=== PATIENT | female | born 1965 | race Caucasian/White ===

== ENCOUNTER 2016-02-27 17:41 | Emergency (ER) | payer OTHER ==
[~2016-02-27 17:41] MED LIST: KLON2TAB PO; PAXI30TA11 PO; ROBA750T4 PO; SUBO8MIS SL; XANA1TAB2 PO; diclofenac PO; suboxone
[2016-02-27] MEDS ORDERED: PHENobarbital 30 MG TAB As Ordered ONE (20:02)
--- NOTE | 2016-02-27 20:58 | EDDOCDS ---
Physician Documentation [facility] Name: Pippa Porras Age: 51 yrs Sex: Female : 1965 Arrival Date: 02/27/2016 Time: 17:41 Bed 31 Private MD: [facility] - Pediatrics Disposition: 02/27/16 20:46 Discharged to Home/Self Care. Impression: Anxiety disorder, unspecified, Sedative, hypnotic or anxiolytic dependence, uncomplicated. - Condition is Stable. - Prescriptions for Klonopin 1 mg Oral Tablet - take 1 tablet by ORAL route once daily As needed MDD: 2 tabs; 2 tablet. - Medication Reconciliation, Local Pharmacy Hours form. - Follow up: Private Physician; When: As previously arranged. - Problem is chronic. - Symptoms have improved. Historical: - Allergies: no known allergies; - Home Meds: 1. klonipin 2mg four times a day not her own meds (Last dose: 02/26/2016) 2. Xanax 1 mg Oral tab four times a day not her own meds (Last dose: 02/26/2016) - PMHx: Anxiety; Arthritis; Bone Spurs; DDD; Depression; Panic Disorder; - PSHx: Tubal ligation; - Social history: Smoking status: Patient uses tobacco products, current every day smoker. No barriers to communication noted, The patient speaks fluent Jordanian, Speaks appropriately for age. - Family history: Not pertinent. - : The pt / caregiver states he / she is not on anticoagulants. Home medication list is obtained from the patient. - Exposure Risk Screening:: None identified. 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 3 in. (160.02 cm) (R); Pain 8/10; 20:56 BP 133 / 70; Pulse 88; Resp 18; Pulse Ox 97% on R/A; slm 17:43 Body Mass Index 26.57 (68.04 kg, 160.02 cm) ct3 MDM: 19:44 Financial registration complete. zo 19:45 [facility] Payment Agreement was scanned into [employer] and attached to record. zo 19:59 PHENobarbital 90 mg PO once ordered. cs11 20:11 PSA Outpatient Referrals was scanned into [employer] and attached to record. cs Administered Medications: 20:08 Drug: PHENobarbital 90 mg Route: PO; slm 20:56 Follow up: Response: Anxiety is improved sl Signatures: Alis Wiggins, RN RN [facility] Gold Laura, PSA PSA cs Dia Estrada Jennifer, RN RN js13 Jersey You, DO SHANE cs11 Windy Reed LPN LPN [facility] The chart was reviewed and I authenticate all verbal orders and agree with the evaluation and treatment provided.Attachments: 19:45 [facility] Payment Agreement zo MTDD
--- NOTE | 2016-02-27 20:58 | EDDOCDS ---
Nurse's Notes [facility] Name: Pipap Porras Age: 51 yrs Sex: Female : 1965 Arrival Date: 02/27/2016 Time: 17:41 Bed 31 Private MD: [facility] - Pediatrics Diagnosis: Anxiety disorder, unspecified;Sedative, hypnotic or anxiolytic dependence, uncomplicated Presentation: 02/26 17:54 Presenting complaint: Patient states: needs something for anxiety. is used to taking srm klonipin and xanax. has appt in PMD on the . denies SI or HI. Presenting complaint: Patient states: states she just got out of long-term yesterday. Mental Health Triage Level: Level 1- Pt displays no suicidal or homicidal ideations and does not appear to be a danger to self or others. Adult Sepsis Screening: The patient does not have new or worsening altered mentation. Patient's respiratory rate is less than 22. Systolic blood pressure is greater than 100. Patient has a qSOFA score of 0- Negative Sepsis Screen. Suicide/Homicide risk assessment- Patient denies SI and HI but presents with another emotional, behavioral or other mental health complaint. The patient reports that he/she has not been admitted to an inpatient mental health facility in the last 30 days. The patient reports that he/she has a recent or current history of substance abuse. The patient reports that he/she has no prior history of suicide attempt and/or organized plan. The patient reports that he/she has experienced a significant life altering event in the last 30 days. Status: Patient is not a social service technician or dependent. Transition of care: patient was not received from another setting of care. 17:54 Acuity: DECLAN Level 4 srm 17:54 Method Of Arrival: Walkin/Carried/Asstd srm Triage Assessment: 17:57 General: Appears in no apparent distress, Behavior is appropriate for age, cooperative. srm Pain: Location: back pain- chronic Pain currently is 8 out of 10 on a pain scale. HIV screening NA for this visit Offered previously. 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 klonipin 2mg four times a day not her own meds (Last dose: 02/26/2016) 2. Xanax 1 mg Oral tab four times a day not her own meds (Last dose: 02/26/2016) - PMHx: Anxiety; Arthritis; Bone Spurs; DDD; Depression; Panic Disorder; - PSHx: Tubal ligation; - Social history: Smoking status: Patient uses tobacco products, current every day smoker. No barriers to communication noted, The patient speaks fluent Jordanian, Speaks appropriately for age. - Family history: Not pertinent. - : The pt / caregiver states he / she is not on anticoagulants. Home medication list is obtained from the patient. - Exposure Risk Screening:: None identified. Screenin:26 Screening information is obtained from the patient. Fall risk: No risks identified. js13 Assistance ADL's: requires no assistance with activities of daily living. Abuse/DV Screen: The patient / caregiver reports he/she is: not in a situation that causes fear, pain or injury. Nutritional screening: No deficits noted. Advance Directives: There is no active DNR order. home support is adequate. Assessment: 18:26 General: Appears in no apparent distress, Behavior is appropriate for age, cooperative. js13 Pain: Location: back Pain currently is 7 out of 10 on a pain scale. Pain: Location: CHRONIC BACK PAIN. Neurological: Level of Consciousness is awake, alert. Respiratory: Airway is patent Respiratory effort is even, unlabored, Respiratory pattern is regular, symmetrical. Derm: Skin is pink, warm & dry. 19:52 General: Appears in no apparent distress, Behavior is cooperative. Respiratory: Airway slm is patent Respiratory effort is even, unlabored. 20:56 Reassessment: Patient appears in no apparent distress at this time. General: Appears in slm no apparent distress, Behavior is cooperative, pt reports anxiety improved . Social Work Consult: 20:04 Social Work Note: PSA spoke with pt, she is requesting medications to help her with her cs recovery program until she can get a referral to Dr. Abdul for Suboxone treatment. Pt reports while in long-term for 45 days, Parul stated she was arrested and charged Feb 25 2016, she was helped by Dr. Farr. Pt is residing with her older daughter at this time, no plans for work or apartment at this time. Pt also reports she is not having any suicidal thoughts or wanting to kill someone. PSA extended support, cab pass to her daughter's residence, no safety concerns noted at this time Referrals given for [facility]. Vital Signs: 17:43 BP 121 / 80; Pulse 100; Resp 18; Temp 97.3(O); Pulse Ox 99% on R/A; Weight 68.04 kg ct3 (R); Height 5 ft. 3 in. (160.02 cm) (R); Pain 8/10; 20:56 BP 133 / 70; Pulse 88; Resp 18; Pulse Ox 97% on R/A; slm 17:43 Body Mass Index 26.57 (68.04 kg, 160.02 cm) ct3 Vitals: 17:43 Log In Time: February 27, 2016 at 17:40. ct3 ED Course: 17:42 Patient visited by Lela Weathers PCA. ct3 17:42 [facility] is Private Physician. ct3 17:42 Patient moved to Waiting ct3 17:44 Patient moved to Pre RCE ct3 17:56 Triage Initiated srm 17:58 Patient moved to 31 srm 18:26 The patient / caregiver is instructed regarding the plan of care and ED course. js13 18:26 No IV's were initiated during this patient's visit. No procedures done that require js13 assistance. 18:28 Patient visited by Fely Vicente RN. js13 18:56 Jersey You DO is Attending Physician. cs11 18:56 Patient visited by Jersey You DO. cs11 19:45 [facility] Payment Agreement was scanned into [employer] and attached to record. zo 19:52 Windy Reed LPN is Primary Nurse. slm 19:52 Patient visited by Windy Reed LPN. slm 20:11 PSA Outpatient Referrals was scanned into [employer] and attached to record. cs 20:57 Patient visited by Windy Reed LPN. slm Administered Medications: 20:08 Drug: PHENobarbital 90 mg Route: PO; slm 20:56 Follow up: Response: Anxiety is improved slm Order Results: There are currently no results for this order. Outcome: 20:46 Discharge ordered by Provider. cs11 20:57 Discharge Assessment: Patient awake, alert and oriented x 3. No cognitive and/or slm functional deficits noted. Patient verbalized understanding of disposition instructions. patient administered narcotics - no. The following High Risk Discharge criteria are identified: None. Discharged to home via cab. Condition: good. Discharge instructions given to patient, Instructed on discharge instructions, follow up and referral plans. medication usage, no driving heavy equipment, Demonstrated understanding of instructions, medications, Pt was receptive of discharge instructions/ teaching. Prescriptions given X 1. No special radiology studies were completed. Property :Personal belongings accompany Pt. 20:57 Patient left the ED. wally Signatures: Alis Wiggins, RN RN srm Gold Laura, PSA PSA cs Sean, Lela Lebron, WARD SERVICE SUPERVISOR WARD SERVICE SUPERVISOR ct3 Fely Vicente,RN RN js13 Jersey You, DO cs11 Windy Reed LPN LPN slm MTDKathe
--- NOTE | 2016-02-29 21:58 | EDDOCDS ---
Physician Documentation [facility] Name: Pippa Porras Age: 51 yrs Sex: Female : 1965 Arrival Date: 02/27/2016 Time: 17:41 Bed 31 Private MD: [facility] - Pediatrics Disposition: 02/27/16 20:46 Discharged to Home/Self Care. Impression: Anxiety disorder, unspecified, Sedative, hypnotic or anxiolytic dependence, uncomplicated. - Condition is Stable. - Prescriptions for Klonopin 1 mg Oral Tablet - take 1 tablet by ORAL route once daily As needed MDD: 2 tabs; 2 tablet. - Medication Reconciliation, Local Pharmacy Hours form. - Follow up: Private Physician; When: As previously arranged. - Problem is chronic. - Symptoms have improved. Historical: - Allergies: no known allergies; - Home Meds: 1. klonipin 2mg four times a day not her own meds (Last dose: 02/26/2016) 2. Xanax 1 mg Oral tab four times a day not her own meds (Last dose: 02/26/2016) - PMHx: Anxiety; Arthritis; Bone Spurs; DDD; Depression; Panic Disorder; - PSHx: Tubal ligation; - Social history: Smoking status: Patient uses tobacco products, current every day smoker. No barriers to communication noted, The patient speaks fluent Burundian, Speaks appropriately for age. - Family history: Not pertinent. - : The pt / caregiver states he / she is not on anticoagulants. Home medication list is obtained from the patient. - Exposure Risk Screening:: None identified. 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 3 in. (160.02 cm) (R); Pain 8/10; 20:56 BP 133 / 70; Pulse 88; Resp 18; Pulse Ox 97% on R/A; slm 17:43 Body Mass Index 26.57 (68.04 kg, 160.02 cm) ct3 MDM: 19:44 Financial registration complete. zo 19:45 [facility] Payment Agreement was scanned into [employer] and attached to record. zo 19:59 PHENobarbital 90 mg PO once ordered. cs11 20:11 PSA Outpatient Referrals was scanned into [employer] and attached to record. cs 02/27 08:10 T-Sheet-- Draft Copy was scanned into [employer] and attached to record. se 08:23 T-Sheet-- Draft Copy was scanned into [employer] and attached to record. se 10:56 T-Sheet-- Draft Copy was scanned into [employer] and attached to record. gb Administered Medications: 02/26 20:08 Drug: PHENobarbital 90 mg Route: PO; sl 20:56 Follow up: Response: Anxiety is improved slm Signatures: Alis Wiggins, RN RN Gold Martinez, PSA PSA cs Bianca Madrid, Reg Reg gb Sean, Fely Flores RN RN js13 Jersey You, DO cs11 Windy Reed,SWAHILI TEACHER SWAHILI TEACHER [facility] [place] [facility] The chart was reviewed and I authenticate all verbal orders and agree with the evaluation and treatment provided.Attachments: 19:45 [facility] Payment Agreement zo 10:56 T-Sheet-- Draft Copy gb Chart Complete MTDD
--- NOTE | 2016-02-29 21:58 | EDDOCDS ---
Physician Documentation [facility] Name: Pippa Porras Age: 51 yrs Sex: Female : 1965 Arrival Date: 02/27/2016 Time: 17:41 Bed 31 Private MD: [facility] - Pediatrics Disposition: 02/27/16 20:46 Discharged to Home/Self Care. Impression: Anxiety disorder, unspecified, Sedative, hypnotic or anxiolytic dependence, uncomplicated. - Condition is Stable. - Prescriptions for Klonopin 1 mg Oral Tablet - take 1 tablet by ORAL route once daily As needed MDD: 2 tabs; 2 tablet. - Medication Reconciliation, Local Pharmacy Hours form. - Follow up: Private Physician; When: As previously arranged. - Problem is chronic. - Symptoms have improved. Historical: - Allergies: no known allergies; - Home Meds: 1. klonipin 2mg four times a day not her own meds (Last dose: 02/26/2016) 2. Xanax 1 mg Oral tab four times a day not her own meds (Last dose: 02/26/2016) - PMHx: Anxiety; Arthritis; Bone Spurs; DDD; Depression; Panic Disorder; - PSHx: Tubal ligation; - Social history: Smoking status: Patient uses tobacco products, current every day smoker. No barriers to communication noted, The patient speaks fluent Bulgarian, Speaks appropriately for age. - Family history: Not pertinent. - : The pt / caregiver states he / she is not on anticoagulants. Home medication list is obtained from the patient. - Exposure Risk Screening:: None identified. 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 3 in. (160.02 cm) (R); Pain 8/10; 20:56 BP 133 / 70; Pulse 88; Resp 18; Pulse Ox 97% on R/A; slm 17:43 Body Mass Index 26.57 (68.04 kg, 160.02 cm) ct3 MDM: 19:44 Financial registration complete. zo 19:45 [facility] Payment Agreement was scanned into [employer] and attached to record. zo 19:59 PHENobarbital 90 mg PO once ordered. cs11 20:11 PSA Outpatient Referrals was scanned into [employer] and attached to record. cs 02/27 08:10 T-Sheet-- Draft Copy was scanned into [employer] and attached to record. se 08:23 T-Sheet-- Draft Copy was scanned into [employer] and attached to record. se 10:56 T-Sheet-- Draft Copy was scanned into [employer] and attached to record. gb Administered Medications: 02/26 20:08 Drug: PHENobarbital 90 mg Route: PO; sl 20:56 Follow up: Response: Anxiety is improved slm Signatures: Alis Wiggins, RN RN Gold Martinez, PSA PSA cs Bianca Madrid, Reg Reg gb Sean, Fely Flores RN RN js13 Jersey You, DO cs11 Windy Reed,IT APPLICATION DEVELOPMENT MANAGER IT APPLICATION DEVELOPMENT MANAGER [facility] [place] [facility] The chart was reviewed and I authenticate all verbal orders and agree with the evaluation and treatment provided.Attachments: 19:45 [facility] Payment Agreement zo 10:56 T-Sheet-- Draft Copy gb Chart Complete MTDD
--- NOTE | 2016-02-29 21:59 | EDDOCDS ---
Nurse's Notes [facility] Name: Pippa Porras Age: 51 yrs Sex: Female : 1965 Arrival Date: 02/27/2016 Time: 17:41 Bed 31 Private MD: [facility] - Pediatrics Diagnosis: Anxiety disorder, unspecified;Sedative, hypnotic or anxiolytic dependence, uncomplicated Presentation: 02/26 17:54 Presenting complaint: Patient states: needs something for anxiety. is used to taking srm klonipin and xanax. has appt in PMD on the . denies SI or HI. Presenting complaint: Patient states: states she just got out of custodial yesterday. Mental Health Triage Level: Level 1- Pt displays no suicidal or homicidal ideations and does not appear to be a danger to self or others. Adult Sepsis Screening: The patient does not have new or worsening altered mentation. Patient's respiratory rate is less than 22. Systolic blood pressure is greater than 100. Patient has a qSOFA score of 0- Negative Sepsis Screen. Suicide/Homicide risk assessment- Patient denies SI and HI but presents with another emotional, behavioral or other mental health complaint. The patient reports that he/she has not been admitted to an inpatient mental health facility in the last 30 days. The patient reports that he/she has a recent or current history of substance abuse. The patient reports that he/she has no prior history of suicide attempt and/or organized plan. The patient reports that he/she has experienced a significant life altering event in the last 30 days. Status: Patient is not a director of student services or dependent. Transition of care: patient was not received from another setting of care. 17:54 Acuity: DECLAN Level 4 srm 17:54 Method Of Arrival: Walkin/Carried/Asstd srm Triage Assessment: 17:57 General: Appears in no apparent distress, Behavior is appropriate for age, cooperative. srm Pain: Location: back pain- chronic Pain currently is 8 out of 10 on a pain scale. HIV screening NA for this visit Offered previously. COMBINER: 17:57 LMP 01/26/2016, irregular srm Historical: - Allergies: no known allergies; - Home Meds: 1. klonipin 2mg four times a day not her own meds (Last dose: 02/26/2016) 2. Xanax 1 mg Oral tab four times a day not her own meds (Last dose: 02/26/2016) - PMHx: Anxiety; Arthritis; Bone Spurs; DDD; Depression; Panic Disorder; - PSHx: Tubal ligation; - Social history: Smoking status: Patient uses tobacco products, current every day smoker. No barriers to communication noted, The patient speaks fluent Surinamese, Speaks appropriately for age. - Family history: Not pertinent. - : The pt / caregiver states he / she is not on anticoagulants. Home medication list is obtained from the patient. - Exposure Risk Screening:: None identified. Screenin:26 Screening information is obtained from the patient. Fall risk: No risks identified. js13 Assistance ADL's: requires no assistance with activities of daily living. Abuse/DV Screen: The patient / caregiver reports he/she is: not in a situation that causes fear, pain or injury. Nutritional screening: No deficits noted. Advance Directives: There is no active DNR order. home support is adequate. Assessment: 18:26 General: Appears in no apparent distress, Behavior is appropriate for age, cooperative. js13 Pain: Location: back Pain currently is 7 out of 10 on a pain scale. Pain: Location: CHRONIC BACK PAIN. Neurological: Level of Consciousness is awake, alert. Respiratory: Airway is patent Respiratory effort is even, unlabored, Respiratory pattern is regular, symmetrical. Derm: Skin is pink, warm & dry. 19:52 General: Appears in no apparent distress, Behavior is cooperative. Respiratory: Airway slm is patent Respiratory effort is even, unlabored. 20:56 Reassessment: Patient appears in no apparent distress at this time. General: Appears in slm no apparent distress, Behavior is cooperative, pt reports anxiety improved . Social Work Consult: 20:04 Social Work Note: PSA spoke with pt, she is requesting medications to help her with her cs recovery program until she can get a referral to Dr. Abdul for Suboxone treatment. Pt reports while in custodial for 45 days, Parul stated she was arrested and charged Feb 25 2016, she was helped by Dr. Farr. Pt is residing with her older daughter at this time, no plans for work or apartment at this time. Pt also reports she is not having any suicidal thoughts or wanting to kill someone. PSA extended support, cab pass to her daughter's residence, no safety concerns noted at this time Referrals given for [facility]. Vital Signs: 17:43 BP 121 / 80; Pulse 100; Resp 18; Temp 97.3(O); Pulse Ox 99% on R/A; Weight 68.04 kg ct3 (R); Height 5 ft. 3 in. (160.02 cm) (R); Pain 8/10; 20:56 BP 133 / 70; Pulse 88; Resp 18; Pulse Ox 97% on R/A; slm 17:43 Body Mass Index 26.57 (68.04 kg, 160.02 cm) ct3 Vitals: 17:43 Log In Time: February 27, 2016 at 17:40. ct3 ED Course: 17:42 Patient visited by Lela Weathers PCA. ct3 17:42 [facility] - [facility] is Private Physician. ct3 17:42 Patient moved to Waiting ct3 17:44 Patient moved to Pre RCE ct3 17:56 Triage Initiated srm 17:58 Patient moved to 31 srm 18:26 The patient / caregiver is instructed regarding the plan of care and ED course. js13 18:26 No IV's were initiated during this patient's visit. No procedures done that require 13 assistance. 18:28 Patient visited by Fely Vicente RN. js13 18:56 Jersey You DO is Attending Physician. cs11 18:56 Patient visited by Jersey You DO. cs11 19:45 [facility] Payment Agreement was scanned into [employer] and attached to record. zo 19:52 Windy Reed LPN is Primary Nurse. slm 19:52 Patient visited by Windy Reed LPN. slm 20:11 PSA Outpatient Referrals was scanned into [employer] and attached to record. cs 20:57 Patient visited by Windy Reed LPN. [facility] 02/27 08:10 T-Sheet-- Draft Copy was scanned into [employer] and attached to record. se 08:23 T-Sheet-- Draft Copy was scanned into [employer] and attached to record. se 10:56 T-Sheet-- Draft Copy was scanned into [employer] and attached to record. gb Administered Medications: 02/26 20:08 Drug: PHENobarbital 90 mg Route: PO; slm 20:56 Follow up: Response: Anxiety is improved slm Order Results: There are currently no results for this order. Outcome: 20:46 Discharge ordered by Provider. cs11 20:57 Discharge Assessment: Patient awake, alert and oriented x 3. No cognitive and/or slm functional deficits noted. Patient verbalized understanding of disposition instructions. patient administered narcotics - no. The following High Risk Discharge criteria are identified: None. Discharged to home via cab. Condition: good. Discharge instructions given to patient, Instructed on discharge instructions, follow up and referral plans. medication usage, no driving heavy equipment, Demonstrated understanding of instructions, medications, Pt was receptive of discharge instructions/ teaching. Prescriptions given X 1. No special radiology studies were completed. Property :Personal belongings accompany Pt. 20:57 Patient left the ED. slm Signatures: Alis Wiggins, RN RN srm Gold Laura, PSA PSA cs [place], Bianca, Reg Reg gb Sean, Olindann zo Jasiel, Lela, ELECTRICAL FITTER ELECTRICAL FITTER ct3 Fely Vicente,RN RN js13 Jersey You, DO cs11 Windy Reed LPN LPN [facility] [place] Mays Chart Complete YOGESH
== END 2016-02-27 20:57 | disposition home or self-care (01) ==
LOC: M ED 17:41
DX: F41.9 Anxiety disorder, unspecified (principal); F13.20 Sedative, hypnotic or anxiolytic dependence, uncomplicated; M12.9 Arthropathy, unspecified; M51.9 Unspecified thoracic, thoracolumbar and lumbosacral intervertebral disc disorder; F32.9 Major depressive disorder, single episode, unspecified; F17.210 Nicotine dependence, cigarettes, uncomplicated; Z79.899 Other long term (current) drug therapy

== ENCOUNTER → 2016-03-05 | Outpatient (REF) | payer OTHER | LOC: M LAB REF 20:57 | PROVIDERS: ATTEND Nurse Practitioner Family | DX: Z79.899 Other long term (current) drug therapy (principal) ==

== ENCOUNTER 2016-09-23 15:26 | Inpatient (IN) | payer OTHER ==
[~2016-09-23] VITALS: Ht 154.9 cm; Wt 60.0 kg
[2016-09-23 16:35] LABS: MEAN CORPUSCULAR HEMOGLOBIN 31.6 pg (27.0-33.0); MEAN CORPUSCULAR HGB CONC 33.5 g/dl (32.0-36.5); MEAN CORPUSCULAR VOLUME 94.5 fl (80.0-96.0); RED CELL DISTRIBUTION WIDTH 13.8 % (11.5-14.5); WHITE BLOOD COUNT 9.5 K/mm3 (4.0-10.0)
[2016-09-23 16:48] LABS: METHADONE URINE NEGATIVE (NEGATIVE)
[2016-09-23 16:53] LABS: CONTROL LINE HCG INT CTR LINE PRESENT
[2016-09-23 17:08] LABS: ALBUMIN 3.7 GM/DL (3.2-5.2); ALBUMIN/GLOBULIN RATIO 1.09 (1.00-1.93); ALKALINE PHOSPHATASE 77 U/L (45-117); ALT/SGPT 15 U/L (12-78); ANION GAP 9 MEQ/L (8-16); AST/SGOT 13 U/L (15-37); BILIRUBIN,DIRECT 0.1 MG/DL (0.0-0.2); BILIRUBIN,TOTAL 0.3 MG/DL (0.2-1.0); BLOOD UREA NITROGEN 12 MG/DL (7-18); CALCIUM LEVEL 8.2 MG/DL (8.5-10.1); CARBON DIOXIDE LEVEL 22 MEQ/L (21-32); CHLORIDE LEVEL 108 MEQ/L (98-107); CREATININE FOR GFR 0.77 MG/DL (0.55-1.02); GLOMERULAR FILTRATION RATE > 60.0 (>58); GLUCOSE, FASTING 99 MG/DL (70-105); SODIUM LEVEL 139 MEQ/L (136-145); TOTAL PROTEIN 7.1 GM/DL (6.4-8.2)
[2016-09-23] MEDS ORDERED: TRAM50TA2 PO (20:38)
[2016-09-23] MEDS ORDERED: ALPR0.5T3 PO (20:38)
[2016-09-23] MEDS ORDERED: PATIENT COMMENT (20:39)
[2016-09-23] MEDS ORDERED: MOM 30ML SUSPENSION UDC PO PRN (20:45)
[2016-09-23] MEDS ORDERED: HALOPERIDOL 5 MG TAB PO PRN (20:45)
[2016-09-23] MEDS ORDERED: MAALOX 30 ML SUSP *UDC PO PRN (20:45)
[2016-09-23] MEDS ORDERED: cloNIDine 0.1 MG TAB PO PRN (20:45)
[2016-09-23] MEDS ORDERED: LORazepam 1 MG TAB PO PRN (20:45)
--- NOTE | 2016-09-23 21:02 | ECGEPIP ---
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
[2016-09-23 23:48] VITALS: BP 117/75
[2016-09-24 07:00] VITALS: BP 123/79
--- NOTE | 2016-09-24 08:58 | HPEPDOC ---
Medical History and Physical Date of Admission Sep 23, 2016 at 21:00 History and Physical PCP: Dr Baudilio Zuniga ATTENDING: Dr. Aki Farley HPI: 51yoF admitted to [facility] for unspecified depressive disorder, being medically examined today. Reports poor po intake recently. Denies any fevers, chills, weakness, fatigue, GARCIA, CP, SOB, cough, palpitations, abdominal pain, N/V /D or changes in bowel or bladder habits. PMHx: Anxiety Depression Self-mutilation Osteoarthritis Chronic pain Substance use PSHX: Tubal ligation SOCHX: Resides in: [place], homeless Marital Status: Single Kids: 3 Employment: Unemployed Tobacco use: One half pack per day ETOH: 2 drinks 3 times per week Illicit Drugs: Patient states "anything to combine nerves", states currently heroin and alcohol. Methamphetamine, crack cocaine IV Drug Use: Heroin Tattoos done unprofessionally: Denies FAMHX: Mother: , unknown Father: , emphysema Siblings: One sister Alive, well Children: Alive, one daughter with ODD Unexpected deaths due to medical reasons: None. ROS: As noted in HPI, otherwise 11pt ROS of systems reviewed and remarkable only for LMP Menopausal. PE: GEN: 51 yo F, appears older than stated age. Thin appearing. No acute distress. Alert and oriented x 3. Avoids eye contact. HEENT: Normocephalic, atraumatic. Pupils are equal, round, and reactive to light. Extraocular movements are intact. No nystagmus appreciated. Sclera are nonicteric. Conjunctiva without injection. Nose midline. Nasal turbinates without bogginess. EACs both patent BL. TMs both visualized and walker with good cone of light, no bulging or erythema. No facial asymmetry. Moist mucous membranes. Dentition poor. Pharynx pink and moist, no cobblestoning. Neck supple , trachea midline. No lymphadenopathy or thyromegaly appreciated. CHEST: Regular rate and rhythm, +S1, +S2 LUNGS: Clear to auscultation bilaterally. No wheezes, rales, or rhonchi. Breathing appears symmetric and easy. Patient is speaking in full sentences. No accessory muscle use. ABD: Round, soft, non-tender, non-distended. +Bowel sounds throughout. No rebound or guarding. No costovertebral angle tenderness. EXT: Pulses 2+ bilaterally dorsalis pedis and radial. No lower extremity edema appreciated. SKIN: [place], dry, warm. No rashes. Healed lacerations noted bilateral forearms. Prior injection sites antecubital areas bilaterally. No erythema, no drainage. NEURO: Alert and oriented x 3. Cranial nerves III-XII are intact. No focal deficits appreciated. EK09/23/16 SINUS RHYTHM POSSIBLE LEFT ATRIAL ENLARGEMENT POSSIBLE RIGHT VENTRICULAR CONDUCTION DELAY DECREASED RATE 01/05/16 A&P: 51yoF admitted to [facility] for unspecified depressive disorder 1. Psych. Plan per Psychiatry. EKG on file. 2. Nicotine dependence. Patch available. 3. Borderline EKG. No cardiac signs or symptoms appreciated on exam, follow with PCP. 4. Follow up with PCP on discharge. 5. Substance use. Per psychiatry. 6. Elevated CK. Recheck. 7. Anemia. Check iron studies, B12, folate. 8. IVDU. Patient agrees to HIV and hepatitis screening. 9. Osteoarthritis. Continue Tylenol 650 mg every 6 hours as needed. Consider pain management consultation if needed. Patient states she has not had any recent prescriptions for tramadol. ISTOP reference # [id number] yielded no results. 10. Patricia COBIAN present throughout exam. Vital Signs Vital Signs Date Time Temp Pulse Resp B/P (MAP) Pulse Ox O2 Delivery O2 Flow Rate FiO2 09/24/16 07:00 97.7 65 19 123/79 (94) 09/23/16 23:48 96 Room Air Laboratory Data Labs 24H Laboratory Tests 2 09/23/16 16:15: Urine Amphetamines Screen POSITIVEH, Urine Benzodiazepines Screen POSITIVEH, Urine Opiates Screen POSITIVEH, Urine Methadone Screen NEGATIVE, Urine Barbiturates Screen NEGATIVE, Urine Phencyclidine Screen NEGATIVE, Urine Cocaine Metabolite Screen NEGATIVE, Urine Cannabinoids Screen POSITIVEH 09/23/16 16:23: Anion Gap 9, Glomerular Filtration Rate > 60.0, Calcium Level 8.2L, Aspartate Amino Transf (AST/SGOT) 13L, Alanine Aminotransferase (ALT/SGPT) 15, Alkaline Phosphatase 77, Total Bilirubin 0.3, Direct Bilirubin 0.1, Total Creatine Kinase 252H, Total Protein 7.1, Albumin 3.7, Albumin/Globulin Ratio 1.09, Thyroid Stimulating Hormone (TSH) 3.660, Human Chorionic Gonadotropin, Qual NEGATIVE, Salicylates Level 2.0L, Acetaminophen Level 3.6L, Ethyl Alcohol Level < 0.003 CBC/BMP Laboratory Tests 09/23/16 16:23 09/23/16 16:24 Red Blood Count 3.78 L, Mean Corpuscular Volume 94.5, Mean Corpuscular Hemoglobin 31.6, Mean Corpuscular Hemoglobin Concent 33.5, Red Cell Distribution Width 13.8 Home Medications Scheduled Alprazolam (Alprazolam) 0.5 Mg Tab, 0.5 MG PO QID Tramadol HCl (Tramadol HCl) 50 Mg Tab, 50 MG PO TID Miscellaneous Medications [Patient Comment] DOSE NOT HAVE AN ACTIVE RX FOR THESE TWO OR ANY DRUGS. LAST TIME SHE FILLED THESE RX WAS 08/12. Allergies Coded Allergies: No Known Allergies (Verified , 08/20/02) Antoinette Singh Sep 24, 2016 08:58
[2016-09-24] MEDS ORDERED: PROMETHAZINE 25 MG TAB PO PRN (09:45)
[2016-09-24] MEDS ORDERED: LOPERAMIDE 2 MG CAP PO PRN ×2 (09:45)
[2016-09-24] MEDS ORDERED: DICYCLOMINE 10 MG CAP PO PRN (09:45)
[2016-09-24] MEDS: hydrOXYzine 50 MG TAB PO PRN ×2 (10:09→18:04)
[2016-09-24] MEDS: cloNIDine 0.1 MG TAB PO SCH ×2 (10:09→18:03)
[2016-09-24] MEDS: ACETAMINOPHEN TAB 650MG DOSE (2X325MG) PO PRN (10:11)
[2016-09-24 10:16] LABS: ALBUMIN 3.2 GM/DL (3.2-5.2); ALBUMIN/GLOBULIN RATIO 1.03 (1.00-1.93); ALKALINE PHOSPHATASE 72 U/L (45-117); ALT/SGPT 13 U/L (12-78); ANION GAP 8 MEQ/L (8-16); AST/SGOT 12 U/L (15-37); BILIRUBIN,TOTAL 0.4 MG/DL (0.2-1.0); BLOOD UREA NITROGEN 10 MG/DL (7-18); CALCIUM LEVEL 8.4 MG/DL (8.5-10.1); CARBON DIOXIDE LEVEL 26 MEQ/L (21-32); CHLORIDE LEVEL 108 MEQ/L (98-107); CREATININE FOR GFR 0.66 MG/DL (0.55-1.02); FERRITIN 46 NG/ML (8-252); GLOMERULAR FILTRATION RATE > 60.0 (>58); GLUCOSE, FASTING 97 MG/DL (70-105); PERCENT SATURATION 36.4 % (13.2-45.0); POTASSIUM SERUM 4.4 MEQ/L (3.5-5.1); SODIUM LEVEL 142 MEQ/L (136-145); TOTAL IRON BINDING CAPACITY 283 UG/DL (250-450); TOTAL PROTEIN 6.3 GM/DL (6.4-8.2)
[2016-09-24 10:59] LABS: VITAMIN B12 LEVEL 247 PG/ML (247-911)
[2016-09-24 11:03] LABS: FOLATE 9.2 NG/ML (>5.4)
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
[2016-09-24 18:00] VITALS: BP 118/72
[2016-09-24] MEDS: VENLAFAXINE **XR** 75MG CAPSULE PO SCH (18:03)
[2016-09-25] MEDS: cloNIDine 0.1 MG TAB PO SCH ×3 (02:05→21:16)
[2016-09-25 06:55] VITALS: BP 118/71
[2016-09-25] MEDS: hydrOXYzine 50 MG TAB PO PRN ×2 (08:47→21:16)
[2016-09-25] MEDS: VENLAFAXINE **XR** 75MG CAPSULE PO SCH (08:47)
[2016-09-25 18:00] VITALS: BP 111/64
[2016-09-26 06:41] VITALS: BP 137/75
[2016-09-26] MEDS: cloNIDine 0.1 MG TAB PO SCH (09:06)
[2016-09-26] MEDS: VENLAFAXINE **XR** 75MG CAPSULE PO SCH (09:06)
--- NOTE | 2016-09-26 15:11 | MHIPN ---
DATE: 09/25/2016 The patient today is laying in bed, almost in a position. She states, "my bones are hurting." She continues to detoxify from the drugs. She is not eating much, urged her to drink fluids. She actually had three cups of fluids on her night stand, and I have encouraged her to drink those to prevent dehydration. Her mood, she says, is fair. She is denying any suicidal thoughts. MENTAL STATUS EXAM: This patient is alert and oriented times three. Eye contact is fair. Psychomotor activity is decreased. As I said, she is laying in bed. Eye contact is distant. No formal thought disorder. She says her mood is fair. Affect is constricted but appropriate to her mood. She is not psychotic, suicidal or homicidal. Concentration is fair. Memory is intact. Insight and judgment is fair. DIAGNOSIS: Substance-induced mood disorder. 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 TREATMENT PLAN: We will continue to monitor the patient for continued stabilization in her mood and resolution of suicidal ideations. We will continue to monitor the patient for continued safe detoxification from the drugs.
[2016-09-26 18:39] VITALS: BP 121/78
--- NOTE | 2016-09-27 06:47 | MHIPN ---
DATE OF VISIT: 09/26/2016 The patient today states that she continues to feel very achy throughout her body and she is having a lot of anxiety. She continues to need a lot of encouragement to at least drink some fluids. She admits she has not been drinking much or eating much. She had three cups full of fluid on her night stand. MENTAL STATUS EXAM: She is alert and oriented times three. Eye contact is fair. She is sitting up today, verbally spontaneous. There is no formal thought disorder noted. Mood is anxious. Affect full range and appropriate. She is not psychotic. She is not suicidal or homicidal. Concentration is fair. Insight and judgment fair. DIAGNOSES: 1. Substance induced mood disorder. 2. Sedative and anxiolytic use disorder. 3. Opioid use disorder. TREATMENT PLAN: At this point will continue to monitor the patient for continuous stabilization of her mood and resolution of suicide ideation and also continue to monitor for continued detoxification off her drugs.
[2016-09-27 07:23] VITALS: BP 126/70
[2016-09-27] MEDS: cloNIDine 0.1 MG TAB PO SCH (09:15)
[2016-09-27] MEDS: VENLAFAXINE **XR** 75MG CAPSULE PO SCH (09:15)
--- NOTE | 2016-09-27 11:59 | MHIPNPDOC ---
[facility] Progress Note Progress Note DATE OF SERVICE: 09/27/16 HISTORY: day 5 of admission for poly substance abuse detox VITAL SIGNS: See below. NEW TEST RESULTS: na. CURRENT MEDICATIONS: See below. MENTAL STATUS EXAMINATION: Patient is a 51-year old female, who is laying in bed, c/o "feeling like crap" . Pt denies eating yet today. It is nearly 11 a.m. Speech: Is spontaneous Language skills are good Thought processes including: linear Thought content: appropriate. Abstract reasoning, and computation: fair. Description of associations: fair. Description of abnormal or psychotic thoughts: denies SI but says she is not ready to leave, no evidence of psychosis noted. Judgment: poor. Insight: poor. Orientation: well oriented at this time. Recent and remote memory: fair. Attention span and concentration: fair Fund of knowledge: Full Mood: irritable. Affect: congruent. DIAGNOSES: 1. Substance induced mood disorder. 2. Sedative and anxiolytic use disorder. 3. Opioid use disorder. ASSESSMENT:pt reports she was out of her room a few times over the weekend. Chart reflects documentation consistent with her statement. Pt not attending groups and encouraged to attend this afternoons groups. Schedule shared with her. pt states she is not ready for discharge as she feels "crappy". She has not made use of several mediations that are prescribed for her. Pt states she intends to follow through with [facility] for outpatient treatment. As of this time she is on waiting lists for housing but nothing definite is planned at this time. MANAGEMENT PLAN: continue meds, pt restarted Effexor since admission. , monitor response. Pt is hypersomnic and needs to be encouraged to be out of the room. Pt told DCP she wants to go to rehab. We will work on this. Pt did eat later in the day. TIME SPENT: 15 minutes. Vital Signs Vital Signs Date Time Temp Pulse Resp B/P (MAP) Pulse Ox O2 Delivery O2 Flow Rate FiO2 09/27/16 09:15 126/70 09/27/16 07:23 98.9 59 16 Room Air 09/23/16 23:48 96 Current Medications Current Medications Acetaminophen (Tylenol Tab) 650 mg Q6HP PRN PO HEADACHE or DISCOMFORT Last administered on 09/24/16t 10:11; Start 09/23/16 at 20:45; Stop 10/23/16 at 20:44 Al Hydrox/Mg Hydrox/Simethicone (Mylanta) 30 ml Q4HP PRN PO HEARTBURN/ INDIGESTION; Start 09/23/16 at 20:45; Stop 10/23/16 at 20:44 Clonidine HCl (Catapres) 0.1 mg DAILY PO Last administered on 09/27/16 09:15; Start 09/26/16 at 09:00; Stop 10/26/16 at 08:59 Clonidine HCl (Catapres) 0.1 mg Q12H PO Last administered on 09/25/16 21:16; Start 09/25/16 at 09:00; Stop 09/26/16 at 08:59; Status DC Clonidine HCl (Catapres) 0.1 mg Q4HP PRN PO WITHDRAWAL SYMPTOMS; Start at 20:45; Stop 10/23/16 at 20:44 Clonidine HCl (Catapres) 0.1 mg Q8H PO Last administered on 09/25/16 02:05; Start 09/24/16 at 10:00; Stop 09/25/16 at 02:01; Status DC Dicyclomine HCl (Bentyl) 10 mg Q6HP PRN PO abdominal cramping; Start 09/24/16 at 09:45; Stop 10/24/16 at 09:44 Haloperidol (Haldol) 5 mg Q4HP PRN PO ANXIETY/AGITATION; Start 09/23/16 at 20: 45; Stop 10/23/16 at 20:44; Status Cancel Home Med (Med Rec Complete!) ASDIRECTED XX ; Start 09/23/16 at 20:45; Stop 11/30 at 20:45; Status DC Hydroxyzine HCl (Atarax) 50 mg Q4HP PRN PO ANXIETY Last administered on 21:16; Start 09/24/16 at 09:30; Stop 10/24/16 at 09:29 Loperamide HCl (Imodium) 2 mg ASDIRECTED PRN PO DIARRHEA; Start 09/24/16 at 09: 45; Stop 10/24/16 at 09:44 Loperamide HCl (Imodium) 4 mg ASDIRECTED PRN PO x 1 with onset of diarrhea; Start 09/24/16 at 09:45 Lorazepam (Ativan) 1 mg Q4HP PRN PO AGITATION; Start 09/23/16 at 20:45; Stop at 20:44 Magnesium Hydroxide (Milk Of Magnesia) 30 ml DAILYPRN PRN PO CONSTIPATION; Start 09/23/16 at 20:45; Stop 10/23/16 at 20:44 Promethazine HCl (Phenergan) 12.5 mg Q4HP PRN PO nausea/vomiting; Start at 09:45; Stop 10/24/16 at 09:44 Trazodone HCl (Desyrel) 50 mg QHSP PRN PO INSOMNIA; Start 09/23/16 at 20:45; Stop 10/23/16 at 20:44 Venlafaxine HCl (Effexor Xr) 75 mg QAM PO Last administered on 09/27/16t 09 :15; Start 09/24/16 at 09:00; Stop 10/24/16 at 08:59 Allergies Coded Allergies: No Known Allergies (Verified , 08/20/02) Fbaienne Shah Sep 27, 2016 11:59
[2016-09-27] MEDS: hydrOXYzine 50 MG TAB PO PRN (17:24)
[2016-09-27 18:00] VITALS: BP 123/78
[2016-09-28 07:10] VITALS: BP 128/80
[2016-09-28] MEDS: cloNIDine 0.1 MG TAB PO SCH (08:46)
[2016-09-28] MEDS: VENLAFAXINE **XR** 75MG CAPSULE PO SCH (08:46)
[2016-09-28] MEDS: hydrOXYzine 50 MG TAB PO PRN ×3 (08:48→20:06)
--- NOTE | 2016-09-28 15:10 | MHIPNPDOC ---
[facility] Progress Note Progress Note DATE OF SERVICE: 09/28/16 HISTORY: day 6 of admission for poly substance abuse, suicidal ideation. VITAL SIGNS: See below. NEW TEST RESULTS: Hepatitis C index High, other hepatitis testing negative. CURRENT MEDICATIONS: See below. MENTAL STATUS EXAMINATION: Patient is a 51-year old female, who is petite, light colored hair, wearing hospital garb, cooperative. Speech: Is logical & spontaneous. Language skills are good. Thought processes including: linear Thought content: appropriate. Abstract reasoning, and computation: good. Description of associations: good. Description of abnormal or psychotic thoughts: no psychotic symptoms noted or reported, denies aud/vis stimulus. Denies SI but says she had to say that to get help. Judgment: limited Insight: very limited. Orientation: well oriented to person, place, situation and time. Recent and remote memory: intact Attention span and concentration: limited. Fund of knowledge:full Mood: anxious. Affect: anxious. Diagnosis: substance induced mood disorder -anxiety r/o ANNY Sedative, hypnotic and opiate addiction-chronic Cannabis abuse Chronic pain nicotine dependent. ASSESSMENT:met with pt for 1:1. She is willing to go to rehab as it is in fact her only option for housing. The CDP was able to find a bed for inpatient substance abuse at [facility] for pt. Anticipated discharge is Tuesday early a.m. as she must arrive there by 10 a.m. Pt was informed of this. Pt c/o high anxiety and demonstrates some tremulousness, disorganized thinking, forgetfulness, restlessness. She was informed that Atarax is available to her prn and was going to the med room for some. She reports that seroquel in low doses has caused akathesia and she felt like she had restless legs. We discussed low dose risperidone instead to help her anxiety. It was explained to her that she must be benzo free when she arrives at rehab so her Ativan prn was discontinued. Pt showered today as requested by nursing staff. She feels awkward on the unit with her dentures, hair is not as she would like and her lack of clothing. She may need assistance by someone telling her she can request her family bring her clothing. She is attending group after being directed to do so by teletypewriter installer and her RN. She behaves appropriately around her peers. She is anxious that she is getting a roommate. MANAGEMENT PLAN: Increase Effexor to 150 mg in am. Add risperidone 0.25 mg tid for anxiety as a standing order. Will evaluate this tomorrow to see if she finds it helpful. She may use Atarax alternatively for anxiety relief. Continue close observation and other meds as ordered. Pt has lost 4 lbs since admission. Please monitor PO intake. Medical: 2. Nicotine dependence. Patch available. 3. Borderline EKG. No cardiac signs or symptoms appreciated on exam, follow with PCP. 4. Follow up with PCP on discharge. 5. Substance use. Per psychiatry. 6. Elevated CK. Recheck. 7. Anemia. Check iron studies, B12, folate. 8. IVDU. Patient agrees to HIV and hepatitis screening. 9. Osteoarthritis. Continue Tylenol 650 mg every 6 hours as needed. Consider pain management consultation if needed. Patient states she has not had any recent prescriptions for tramadol. ISTOP reference # [id number] yielded no results. TIME SPENT: 25 minutes. Vital Signs Vital Signs Date Time Temp Pulse Resp B/P (MAP) Pulse Ox O2 Delivery O2 Flow Rate FiO2 09/28/16 08:46 128/80 09/28/16 07:10 99.1 69 16 Room Air 09/23/16 23:48 96 Current Medications Current Medications Acetaminophen (Tylenol Tab) 650 mg Q6HP PRN PO HEADACHE or DISCOMFORT Last administered on 09/24/16 10:11; Start 09/23/16 at 20:45; Stop 10/23/16 at 20:44 Al Hydrox/Mg Hydrox/Simethicone (Mylanta) 30 ml Q4HP PRN PO HEARTBURN/ INDIGESTION; Start 09/23/16 at 20:45; Stop 10/23/16 at 20:44 Clonidine HCl (Catapres) 0.1 mg DAILY PO Last administered on 09/28/16 08:46; Start 09/26/16 at 09:00; Stop 10/26/16 at 08:59 Clonidine HCl (Catapres) 0.1 mg Q12H PO Last administered on 09/25/16 21:16; Start 09/25/16 at 09:00; Stop 09/26/16 at 08:59; Status DC Clonidine HCl (Catapres) 0.1 mg Q4HP PRN PO WITHDRAWAL SYMPTOMS; Start at 20:45; Stop 10/23/16 at 20:44 Clonidine HCl (Catapres) 0.1 mg Q8H PO Last administered on 09/25/16 02:05; Start 09/24/16 at 10:00; Stop 09/25/16 at 02:01; Status DC Dicyclomine HCl (Bentyl) 10 mg Q6HP PRN PO abdominal cramping; Start 09/24/16 at 09:45; Stop 10/24/16 at 09:44 Haloperidol (Haldol) 5 mg Q4HP PRN PO ANXIETY/AGITATION; Start 09/23/16 at 20: 45; Stop 10/23/16 at 20:44; Status Cancel Home Med (Med Rec Complete!) ASDIRECTED XX ; Start 09/23/16 at 20:45; Stop 11/30 at 20:45; Status DC Hydroxyzine HCl (Atarax) 50 mg Q4HP PRN PO ANXIETY Last administered on 08:48; Start 09/24/16 at 09:30; Stop 10/24/16 at 09:29 Loperamide HCl (Imodium) 2 mg ASDIRECTED PRN PO DIARRHEA; Start 09/24/16 at 09: 45; Stop 10/24/16 at 09:44 Loperamide HCl (Imodium) 4 mg ASDIRECTED PRN PO x 1 with onset of diarrhea; Start 09/24/16 at 09:45 Lorazepam (Ativan) 1 mg Q4HP PRN PO AGITATION; Start 09/23/16 at 20:45; Stop at 20:44; Status Cancel Magnesium Hydroxide (Milk Of Magnesia) 30 ml DAILYPRN PRN PO CONSTIPATION; Start 09/23/16 at 20:45; Stop 10/23/16 at 20:44 Promethazine HCl (Phenergan) 12.5 mg Q4HP PRN PO nausea/vomiting; Start at 09:45; Stop 10/24/16 at 09:44 Trazodone HCl (Desyrel) 50 mg QHSP PRN PO INSOMNIA; Start 09/23/16 at 20:45; Stop 10/23/16 at 20:44 Venlafaxine HCl (Effexor Xr) 75 mg QAM PO Last administered on 09/28/16t 08 :46; Start 09/24/16 at 09:00; Stop 10/24/16 at 08:59 Allergies Coded Allergies: No Known Allergies (Verified , 08/20/02) Fabienne Shah Sep 28, 2016 15:09
[2016-09-28] MEDS: risperiDONE 0.25 MG TAB PO SCH ×2 (15:37→20:06)
[2016-09-28 18:00] VITALS: BP 131/75
[2016-09-28] MEDS: traZODone 50 MG TAB PO PRN (20:06)
[2016-09-29 07:02] VITALS: BP 116/66
[2016-09-29] MEDS: cloNIDine 0.1 MG TAB PO SCH (09:05)
[2016-09-29] MEDS: hydrOXYzine 50 MG TAB PO PRN ×3 (09:05→21:13)
[2016-09-29] MEDS: risperiDONE 0.25 MG TAB PO SCH ×3 (09:05→21:13)
[2016-09-29] MEDS: VENLAFAXINE **XR** 75MG CAPSULE PO SCH (09:06)
[2016-09-29] MEDS: ACETAMINOPHEN TAB 650MG DOSE (2X325MG) PO PRN ×2 (09:06→21:13)
--- NOTE | 2016-09-29 15:09 | MHIPNPDOC ---
[facility] Progress Note Progress Note DATE OF SERVICE: 09/29/16 HISTORY: day 7 of admission for SI related to poly substance abuse and homelessness. VITAL SIGNS: See below. NEW TEST RESULTS: na CURRENT MEDICATIONS: See below. MENTAL STATUS EXAMINATION: Patient is a 51-year old female, who is petite, with light colored hair, wearing hospital attire, good eye contact. Speech: Is spontaneous Language skills are good Thought processes including: goal directed Thought content: appropriate. Abstract reasoning, and computation: good. Description of associations: good. Description of abnormal or psychotic thoughts: pt is not voicing desire to kill herself, she contracts for safety, denies psychotic disturbances. Judgment: limited Insight: limited. Orientation: well oriented to person, place, time and situation. Recent and remote memory: intact. Attention span and concentration: varies. Fund of knowledge: Full. Mood: anxious. Affect: congruent. DIAGNOSES: substance induced mood disorder -anxiety r/o ANNY Sedative, hypnotic and opiate addiction-chronic Cannabis abuse Chronic pain nicotine dependent. ASSESSMENT:pt reported feeling anxious yesterday and is on a regime of risperidone 0.25 mg tid. She also has Atarax available prn. She is much calmer today and has been visible on the milieu most of the day. She attends group and is thinking about things like her hopes and dreams. She requested Suboxone while awaiting her transfer to [facility] but since she does not have an outpatient provider to prescribe for her once she is discharged from rehab we cannot initiate the treatment here. Pt is sleeping adequately, eating a little at every meal and watching her fluid intake to prevent dehydration. Her physical condition is improving. Emotionally she appears less labile. She has not presented any behavior challenges for the staff. MANAGEMENT PLAN: no changes to meds or observation status. Continue to monitor and encourage po intake. We expect to discharge her on Tuesday for rehab. She is aware. TIME SPENT: 15 minutes. Vital Signs Vital Signs Date Time Temp Pulse Resp B/P (MAP) Pulse Ox O2 Delivery O2 Flow Rate FiO2 09/29/16 09:05 116/66 09/29/16 07:02 99.3 65 16 09/28/16 07:10 Room Air 09/23/16 23:48 96 Current Medications Current Medications Acetaminophen (Tylenol Tab) 650 mg Q6HP PRN PO HEADACHE or DISCOMFORT Last administered on 09/29/16 09:06; Start 09/23/16 at 20:45; Stop 10/23/16 at 20:44 Al Hydrox/Mg Hydrox/Simethicone (Mylanta) 30 ml Q4HP PRN PO HEARTBURN/ INDIGESTION; Start 09/23/16 at 20:45; Stop 10/23/16 at 20:44 Clonidine HCl (Catapres) 0.1 mg DAILY PO Last administered on 09/29/16 09:05; Start 09/26/16 at 09:00; Stop 10/26/16 at 08:59 Clonidine HCl (Catapres) 0.1 mg Q12H PO Last administered on 09/25/16 21:16; Start 09/25/16 at 09:00; Stop 09/26/16 at 08:59; Status DC Clonidine HCl (Catapres) 0.1 mg Q4HP PRN PO WITHDRAWAL SYMPTOMS; Start at 20:45; Stop 10/23/16 at 20:44 Clonidine HCl (Catapres) 0.1 mg Q8H PO Last administered on 09/25/16 02:05; Start 09/24/16 at 10:00; Stop 09/25/16 at 02:01; Status DC Dicyclomine HCl (Bentyl) 10 mg Q6HP PRN PO abdominal cramping; Start 09/24/16 at 09:45; Stop 10/24/16 at 09:44 Haloperidol (Haldol) 5 mg Q4HP PRN PO ANXIETY/AGITATION; Start 09/23/16 at 20: 45; Stop 10/23/16 at 20:44; Status Cancel Home Med (Med Rec Complete!) ASDIRECTED XX ; Start 09/23/16 at 20:45; Stop 11/30 at 20:45; Status DC Hydroxyzine HCl (Atarax) 50 mg Q4HP PRN PO ANXIETY Last administered on 09:05; Start 09/24/16 at 09:30; Stop 10/24/16 at 09:29 Loperamide HCl (Imodium) 2 mg ASDIRECTED PRN PO DIARRHEA; Start 09/24/16 at 09: 45; Stop 10/24/16 at 09:44 Loperamide HCl (Imodium) 4 mg ASDIRECTED PRN PO x 1 with onset of diarrhea; Start 09/24/16 at 09:45 Lorazepam (Ativan) 1 mg Q4HP PRN PO AGITATION; Start 09/23/16 at 20:45; Stop at 20:44; Status Cancel Magnesium Hydroxide (Milk Of Magnesia) 30 ml DAILYPRN PRN PO CONSTIPATION; Start 09/23/16 at 20:45; Stop 10/23/16 at 20:44 Promethazine HCl (Phenergan) 12.5 mg Q4HP PRN PO nausea/vomiting; Start at 09:45; Stop 10/24/16 at 09:44 Risperidone (RisperDAL) 0.25 mg TID PO Last administered on 09/29/16 09:05; Start 09/28/16 at 16:00; Stop 10/28/16 at 15:59 Trazodone HCl (Desyrel) 50 mg QHSP PRN PO INSOMNIA Last administered on 20:06; Start 09/23/16 at 20:45; Stop 10/23/16 at 20:44 Venlafaxine HCl (Effexor Xr) 75 mg QAM PO Last administered on 09/28/16 08 :46; Start 09/24/16 at 09:00; Stop 09/28/16 at 15:00; Status DC Venlafaxine HCl (Effexor Xr) 150 mg QAM PO Last administered on 09/29/16 09:06; Start 09/29/16 at 09:00; Stop 10/29/16 at 08:59 Allergies Coded Allergies: No Known Allergies (Verified , 08/20/02) Fabeinne Shah Sep 29, 2016 15:09
[2016-09-29 18:00] VITALS: BP 124/76
[2016-09-30 06:34] VITALS: BP 102/61
[2016-09-30] MEDS: VENLAFAXINE **XR** 75MG CAPSULE PO SCH (08:30)
[2016-09-30] MEDS: risperiDONE 0.25 MG TAB PO SCH (08:30)
[2016-09-30] MEDS: cloNIDine 0.1 MG TAB PO SCH (08:30)
[2016-09-30] MEDS: hydrOXYzine 50 MG TAB PO PRN (13:14)
[2016-09-30 13:15] VITALS: BP 119/75
--- NOTE | 2016-09-30 15:47 | MHIPNPDOC ---
[facility] Progress Note Progress Note DATE OF SERVICE: 09/30/16 HISTORY: day 8 of admission for suicide ideation related to poly substance abuse. VITAL SIGNS: See below. NEW TEST RESULTS: na CURRENT MEDICATIONS: See below. MENTAL STATUS EXAMINATION: Patient is a 51-year old female, who is petite, light colored hair, good eye contact, wearing street clothes. Speech: Is spontaneous and clear. Language skills are good. Thought processes including: goal directed. Thought content: appropriate. Abstract reasoning, and computation: good. Description of associations: good. Description of abnormal or psychotic thoughts: pt denies delusions, FOI or ELISHA, no aud/vis disturbance. Pt denies current plan or intent of suicide. Judgment: fair. Insight: fair. Orientation: oriented to time, place, person and surroundings. Recent and remote memory: intact Attention span and concentration: varies due to anxiety Fund of knowledge:Full Mood: anxious. Affect: anxious. DIAGNOSES: substance induced mood disorder -anxiety r/o ANNY Sedative, hypnotic and opiate addiction-chronic Cannabis abuse Chronic pain nicotine dependent. ASSESSMENT:pt continues to complain of anxiety. Does not feel relief from current dose of risperidone. Is visible on the unit. Interacts appropriately with others. States her needs sufficiently. Is independent with ADL's. Showing signs of improvement over the past 4 days. pt is involved in treatment and discharge planning. She is taking effexor er regularly as ordered. No behavior challenges. MANAGEMENT PLAN: will increase risperidone for pats benefit and enc atarax prn as ordered. Monitor weight and enc po intake which is improving. continue close observation and support plans to remain drug free and clean. TIME SPENT: 15 minutes. Vital Signs Vital Signs Date Time Temp Pulse Resp B/P (MAP) Pulse Ox O2 Delivery O2 Flow Rate FiO2 09/30/16 13:15 83 20 119/75 (90) 09/30/16 06:34 98.7 09/28/16 07:10 Room Air Current Medications Current Medications Acetaminophen (Tylenol Tab) 650 mg Q6HP PRN PO HEADACHE or DISCOMFORT Last administered on 09/29/16t 21:13; Start 09/23/16 at 20:45; Stop 10/23/16 at 20:44 Al Hydrox/Mg Hydrox/Simethicone (Mylanta) 30 ml Q4HP PRN PO HEARTBURN/ INDIGESTION; Start 09/23/16 at 20:45; Stop 10/23/16 at 20:44 Clonidine HCl (Catapres) 0.1 mg DAILY PO Last administered on 09/30/16 08:30; Start 09/26/16 at 09:00; Stop 10/26/16 at 08:59 Clonidine HCl (Catapres) 0.1 mg Q12H PO Last administered on 09/25/16 21:16; Start 09/25/16 at 09:00; Stop 09/26/16 at 08:59; Status DC Clonidine HCl (Catapres) 0.1 mg Q4HP PRN PO WITHDRAWAL SYMPTOMS; Start at 20:45; Stop 10/23/16 at 20:44 Clonidine HCl (Catapres) 0.1 mg Q8H PO Last administered on 09/25/16 02:05; Start 09/24/16 at 10:00; Stop 09/25/16 at 02:01; Status DC Dicyclomine HCl (Bentyl) 10 mg Q6HP PRN PO abdominal cramping; Start 09/24/16 at 09:45; Stop 10/24/16 at 09:44 Haloperidol (Haldol) 5 mg Q4HP PRN PO ANXIETY/AGITATION; Start 09/23/16 at 20: 45; Stop 10/23/16 at 20:44; Status Cancel Home Med (Med Rec Complete!) ASDIRECTED XX ; Start 09/23/16 at 20:45; Stop 11/30 at 20:45; Status DC Hydroxyzine HCl (Atarax) 50 mg Q4HP PRN PO ANXIETY Last administered on 13:14; Start 09/24/16 at 09:30; Stop 10/24/16 at 09:29 Loperamide HCl (Imodium) 2 mg ASDIRECTED PRN PO DIARRHEA; Start 09/24/16 at 09: 45; Stop 10/24/16 at 09:44 Loperamide HCl (Imodium) 4 mg ASDIRECTED PRN PO x 1 with onset of diarrhea; Start 09/24/16 at 09:45 Lorazepam (Ativan) 1 mg Q4HP PRN PO AGITATION; Start 09/23/16 at 20:45; Stop at 20:44; Status Cancel Magnesium Hydroxide (Milk Of Magnesia) 30 ml DAILYPRN PRN PO CONSTIPATION; Start 09/23/16 at 20:45; Stop 10/23/16 at 20:44 Promethazine HCl (Phenergan) 12.5 mg Q4HP PRN PO nausea/vomiting; Start at 09:45; Stop 10/24/16 at 09:44 Risperidone (RisperDAL) 0.25 mg TID PO Last administered on 09/30/16 08:30; Start 09/28/16 at 16:00; Stop 10/28/16 at 15:59 Trazodone HCl (Desyrel) 50 mg QHSP PRN PO INSOMNIA Last administered on 20:06; Start 09/23/16 at 20:45; Stop 10/23/16 at 20:44 Venlafaxine HCl (Effexor Xr) 75 mg QAM PO Last administered on 09/28/16 08 :46; Start 09/24/16 at 09:00; Stop 09/28/16 at 15:00; Status DC Venlafaxine HCl (Effexor Xr) 150 mg QAM PO Last administered on 09/30/16 08:30; Start 09/29/16 at 09:00; Stop 10/29/16 at 08:59 Allergies Coded Allergies: No Known Allergies (Verified , 08/20/02) Fabienne Shah Sep 30, 2016 15:17
[2016-09-30] MEDS: ACETAMINOPHEN TAB 650MG DOSE (2X325MG) PO PRN (15:56)
[2016-09-30] MEDS: risperiDONE 0.5 MG TAB PO SCH ×2 (17:05→21:15)
[2016-09-30 18:00] VITALS: BP 137/78
[2016-09-30] MEDS: traZODone 50 MG TAB PO PRN (21:15)
[2016-10-01 06:25] VITALS: BP 129/61
[2016-10-01] MEDS: ACETAMINOPHEN TAB 650MG DOSE (2X325MG) PO PRN (09:12)
[2016-10-01] MEDS: cloNIDine 0.1 MG TAB PO SCH (09:12)
[2016-10-01] MEDS: VENLAFAXINE **XR** 75MG CAPSULE PO SCH (09:12)
[2016-10-01] MEDS: risperiDONE 0.5 MG TAB PO SCH ×3 (09:12→20:05)
--- NOTE | 2016-10-01 16:20 | MHIPNPDOC ---
[facility] Progress Note Progress Note DATE OF SERVICE: 10/01/16 HISTORY: day 9 of admission for polysubstance abuse/suicidal statements. VITAL SIGNS: See below. NEW TEST RESULTS: na CURRENT MEDICATIONS: See below. MENTAL STATUS EXAMINATION: Patient is a 51-year old female, who is petite, slightly disheveled, good eye contact, cooperative, wearing street clothes. Speech: Is clear. Language skills are good. Thought processes including: goal directed Thought content: appropriate. Abstract reasoning, and computation: good. Description of associations: good. Description of abnormal or psychotic thoughts: no psychotic symptoms observed. pt denies presence of suicidal thoughts, intentions or plans. Judgment: limited Insight: fair. Orientation: good in all spheres. Recent and remote memory: adequate. Attention span and concentration: good. Fund of knowledge: Full. Mood: euthymic with periods of anxiety. Affect: anxious. DIAGNOSES: substance induced mood disorder -anxiety r/o ANNY Sedative, hypnotic and opiate addiction-chronic Cannabis abuse Chronic pain nicotine dependent. ASSESSMENT:pt is visible in milieu, observed on phone at times, appeared upset. she has reported to staff that she is worried about her belongings however it is our understanding she was currently homeless. She attends to hygiene needs. is eating better. Pt is very good about attending groups and is doing well on the unit. She gets along well with others. MANAGEMENT PLAN: She is expected to be discharged on Tuesday of the coming week - going to rehab at [facility]. She wants her oldest daughter to take her which is not a problem. Pt has a significant anxiety problem likely substance induced and should continue with Venlafaxine until she attains good relief. Once Venlafaxine has been in her system for a few weeks it is hoped she can stop the risperidone which is really being offered for mood stability and anxiety reduction. continue close obs, monitor meals and sleep, continue meds. TIME SPENT: 15 minutes. Vital Signs Vital Signs Date Time Temp Pulse Resp B/P (MAP) Pulse Ox O2 Delivery O2 Flow Rate FiO2 10/01/16 09:12 129/61 10/01/16 06:25 98.9 59 18 Room Air Current Medications Current Medications Acetaminophen (Tylenol Tab) 650 mg Q6HP PRN PO HEADACHE or DISCOMFORT Last administered on 10/01/16t 09:12; Start 09/23/16 at 20:45; Stop 10/23/16 at 20:44 Al Hydrox/Mg Hydrox/Simethicone (Mylanta) 30 ml Q4HP PRN PO HEARTBURN/ INDIGESTION; Start 09/23/16 at 20:45; Stop 10/23/16 at 20:44 Clonidine HCl (Catapres) 0.1 mg DAILY PO Last administered on 10/01/16 09:12; Start 09/26/16 at 09:00; Stop 10/26/16 at 08:59 Clonidine HCl (Catapres) 0.1 mg Q12H PO Last administered on 09/25/16 21:16; Start 09/25/16 at 09:00; Stop 09/26/16 at 08:59; Status DC Clonidine HCl (Catapres) 0.1 mg Q4HP PRN PO WITHDRAWAL SYMPTOMS; Start at 20:45; Stop 10/23/16 at 20:44 Clonidine HCl (Catapres) 0.1 mg Q8H PO Last administered on 09/25/16 02:05; Start 09/24/16 at 10:00; Stop 09/25/16 at 02:01; Status DC Dicyclomine HCl (Bentyl) 10 mg Q6HP PRN PO abdominal cramping; Start 09/24/16 at 09:45; Stop 10/24/16 at 09:44 Haloperidol (Haldol) 5 mg Q4HP PRN PO ANXIETY/AGITATION; Start 09/23/16 at 20: 45; Stop 10/23/16 at 20:44; Status Cancel Home Med (Med Rec Complete!) ASDIRECTED XX ; Start 09/23/16 at 20:45; Stop 11/30 at 20:45; Status DC Hydroxyzine HCl (Atarax) 50 mg Q4HP PRN PO ANXIETY Last administered on 13:14; Start 09/24/16 at 09:30; Stop 10/24/16 at 09:29 Loperamide HCl (Imodium) 2 mg ASDIRECTED PRN PO DIARRHEA; Start 09/24/16 at 09: 45; Stop 10/24/16 at 09:44 Loperamide HCl (Imodium) 4 mg ASDIRECTED PRN PO x 1 with onset of diarrhea; Start 09/24/16 at 09:45 Lorazepam (Ativan) 1 mg Q4HP PRN PO AGITATION; Start 09/23/16 at 20:45; Stop at 20:44; Status Cancel Magnesium Hydroxide (Milk Of Magnesia) 30 ml DAILYPRN PRN PO CONSTIPATION; Start 09/23/16 at 20:45; Stop 10/23/16 at 20:44 Promethazine HCl (Phenergan) 12.5 mg Q4HP PRN PO nausea/vomiting; Start at 09:45; Stop 10/24/16 at 09:44 Risperidone (RisperDAL) 0.25 mg TID PO Last administered on 09/30/16 08:30; Start 09/28/16 at 16:00; Stop 09/30/16 at 15:49; Status DC Risperidone (RisperDAL) 0.5 mg TID PO Last administered on 10/01/16 09:12; Start 09/30/16 at 16:00; Stop 10/30/16 at 15:59 Trazodone HCl (Desyrel) 50 mg QHSP PRN PO INSOMNIA Last administered on 21:15; Start 09/23/16 at 20:45; Stop 10/23/16 at 20:44 Venlafaxine HCl (Effexor Xr) 75 mg QAM PO Last administered on 09/28/16 08 :46; Start 09/24/16 at 09:00; Stop 09/28/16 at 15:00; Status DC Venlafaxine HCl (Effexor Xr) 150 mg QAM PO Last administered on 10/01/16 09:12; Start 09/29/16 at 09:00; Stop 10/29/16 at 08:59 Allergies Coded Allergies: No Known Allergies (Verified , 08/20/02) Fabienne Shah Oct 01, 2016 16:20
[2016-10-01 18:00] VITALS: BP 101/51
[2016-10-01] MEDS: hydrOXYzine 50 MG TAB PO PRN (20:05)
[2016-10-02 06:57] VITALS: BP 157/72
[2016-10-02] MEDS: cloNIDine 0.1 MG TAB PO SCH (08:51)
[2016-10-02] MEDS: VENLAFAXINE **XR** 75MG CAPSULE PO SCH (08:51)
[2016-10-02] MEDS: ACETAMINOPHEN TAB 650MG DOSE (2X325MG) PO PRN ×2 (08:52→20:56)
[2016-10-02] MEDS: risperiDONE 0.5 MG TAB PO SCH ×2 (11:20→20:54)
[2016-10-02 18:00] VITALS: BP 135/80
[2016-10-02] MEDS: hydrOXYzine 50 MG TAB PO PRN (20:54)
[2016-10-03 07:02] VITALS: BP 127/72
[2016-10-03] MEDS: VENLAFAXINE **XR** 75MG CAPSULE PO SCH (08:02)
[2016-10-03] MEDS: cloNIDine 0.1 MG TAB PO SCH (08:03)
[2016-10-03] MEDS: risperiDONE 0.5 MG TAB PO SCH ×2 (11:55→20:54)
[2016-10-03] MEDS: hydrOXYzine 50 MG TAB PO PRN ×2 (11:56→20:53)
[2016-10-03 18:00] VITALS: BP 132/77
[2016-10-03] MEDS: ACETAMINOPHEN TAB 650MG DOSE (2X325MG) PO PRN (20:54)
[2016-10-03] MEDS: traZODone 50 MG TAB PO PRN (20:54)
[2016-10-04 06:30] VITALS: BP 112/67
[2016-10-04] MEDS: VENLAFAXINE **XR** 75MG CAPSULE PO SCH (08:49)
[2016-10-04] MEDS: cloNIDine 0.1 MG TAB PO SCH (08:49)
[2016-10-04] MEDS: hydrOXYzine 50 MG TAB PO PRN ×2 (08:49→17:56)
[2016-10-04] MEDS: risperiDONE 0.5 MG TAB PO SCH ×2 (12:20→21:02)
--- NOTE | 2016-10-04 14:01 | MHIPNPDOC ---
[facility] Progress Note Progress Note DATE OF SERVICE: 10/04/16 HISTORY: day 11 for depression/anxiety/poly substance dependence with SI. VITAL SIGNS: See below. NEW TEST RESULTS: CURRENT MEDICATIONS: See below. MENTAL STATUS EXAMINATION: Patient is a 51-year old female, who is petite, light colored hair, street clothes, good eye contact. Speech: Is clear and spontaneous Language skills are good. Thought processes including: goal directed. Thought content: appropriate. Abstract reasoning, and computation: good. Description of associations: good. Description of abnormal or psychotic thoughts: not suicidal any longer, no psychotic symptoms but does report feeling paranoid at times. She says she has had this for a long time. Judgment: fair. Insight: fair. Orientation: oriented to person, time, place and surroundings. Recent and remote memory: intact. Attention span and concentration: good. Fund of knowledge: Full. Mood:"anxious & paranoid". Affect: has range. DIAGNOSES: substance induced mood disorder -anxiety r/o ANNY Sedative, hypnotic and opiate addiction-chronic Cannabis abuse Chronic pain nicotine dependent. ASSESSMENT:pt observed on unit attending to things she needs to do,phone, groups , good interactions with others. Pt asked about smoking at rehab. We did not have much info on this. MANAGEMENT PLAN: Pt leaves tomorrow a.m. early for [facility] rehab. Daughter is driving her. No meds on discharge. Daughter should be aware there is likely no discharge plan for housing once pt is discharged from rehab. She will need to present to [facility] with proof she completed treatment so [facility] releases the sanction on her housing benefits TIME SPENT: 15 minutes. Vital Signs Vital Signs Date Time Temp Pulse Resp B/P (MAP) Pulse Ox O2 Delivery O2 Flow Rate FiO2 10/04/16 08:49 112/67 10/04/16 06:30 98.7 64 18 Room Air Current Medications Current Medications Acetaminophen (Tylenol Tab) 650 mg Q6HP PRN PO HEADACHE or DISCOMFORT Last administered on 10/03/16t 20:54; Start 09/23/16 at 20:45; Stop 10/23/16 at 20:44 Al Hydrox/Mg Hydrox/Simethicone (Mylanta) 30 ml Q4HP PRN PO HEARTBURN/ INDIGESTION; Start 09/23/16 at 20:45; Stop 10/23/16 at 20:44 Clonidine HCl (Catapres) 0.1 mg DAILY PO Last administered on 10/04/16 08:49; Start 09/26/16 at 09:00; Stop 10/26/16 at 08:59 Clonidine HCl (Catapres) 0.1 mg Q12H PO Last administered on 09/25/16 21:16; Start 09/25/16 at 09:00; Stop 09/26/16 at 08:59; Status DC Clonidine HCl (Catapres) 0.1 mg Q4HP PRN PO WITHDRAWAL SYMPTOMS; Start at 20:45; Stop 10/23/16 at 20:44 Clonidine HCl (Catapres) 0.1 mg Q8H PO Last administered on 09/25/16 02:05; Start 09/24/16 at 10:00; Stop 09/25/16 at 02:01; Status DC Dicyclomine HCl (Bentyl) 10 mg Q6HP PRN PO abdominal cramping; Start 09/24/16 at 09:45; Stop 10/24/16 at 09:44 Haloperidol (Haldol) 5 mg Q4HP PRN PO ANXIETY/AGITATION; Start 09/23/16 at 20: 45; Stop 10/23/16 at 20:44; Status Cancel Home Med (Med Rec Complete!) ASDIRECTED XX ; Start 09/23/16 at 20:45; Stop 11/30 at 20:45; Status DC Hydroxyzine HCl (Atarax) 50 mg Q4HP PRN PO ANXIETY Last administered on 08:49; Start 09/24/16 at 09:30; Stop 10/24/16 at 09:29 Loperamide HCl (Imodium) 2 mg ASDIRECTED PRN PO DIARRHEA; Start 09/24/16 at 09: 45; Stop 10/24/16 at 09:44 Loperamide HCl (Imodium) 4 mg ASDIRECTED PRN PO x 1 with onset of diarrhea; Start 09/24/16 at 09:45 Lorazepam (Ativan) 1 mg Q4HP PRN PO AGITATION; Start 09/23/16 at 20:45; Stop at 20:44; Status Cancel Magnesium Hydroxide (Milk Of Magnesia) 30 ml DAILYPRN PRN PO CONSTIPATION Last administered on 10/01/16 20:59; Start 09/23/16 at 20:45; Stop 10/23/16 at 20:44 Promethazine HCl (Phenergan) 12.5 mg Q4HP PRN PO nausea/vomiting; Start at 09:45; Stop 10/24/16 at 09:44 Risperidone (RisperDAL) 0.25 mg TID PO Last administered on 09/30/16 08:30; Start 09/28/16 at 16:00; Stop 09/30/16 at 15:49; Status DC Risperidone (RisperDAL) 0.5 mg BID@1200,2100 PO Last administered on 10/04/16 12:20; Start 10/01/16 at 21:00; Stop 10/31/16 at 20:59 Risperidone (RisperDAL) 0.5 mg TID PO Last administered on 10/01/16 16:26; Start 09/30/16 at 16:00; Stop 10/01/16 at 16:42; Status DC Trazodone HCl (Desyrel) 50 mg QHSP PRN PO INSOMNIA Last administered on 20:54; Start 09/23/16 at 20:45; Stop 10/23/16 at 20:44 Venlafaxine HCl (Effexor Xr) 75 mg QAM PO Last administered on 09/28/16 08 :46; Start 09/24/16 at 09:00; Stop 09/28/16 at 15:00; Status DC Venlafaxine HCl (Effexor Xr) 150 mg QAM PO Last administered on 10/04/16 08:49; Start 09/29/16 at 09:00; Stop 10/29/16 at 08:59 Allergies Coded Allergies: No Known Allergies (Verified , 08/20/02) Fabienne Shah Oct 04, 2016 14:01
[2016-10-04 18:00] VITALS: BP 142/74
[2016-10-04] MEDS: traZODone 50 MG TAB PO PRN (21:02)
[2016-10-05] MEDS: hydrOXYzine 50 MG TAB PO PRN (06:25)
[2016-10-05] MEDS: VENLAFAXINE **XR** 75MG CAPSULE PO SCH (06:25)
[2016-10-05 06:27] VITALS: BP 133/66
[2016-10-05] MEDS: cloNIDine 0.1 MG TAB PO SCH (06:27)
--- NOTE | 2016-10-05 14:06 | MHDSPDOC ---
[facility] Discharge Summary Discharge Summary DATE OF ADMISSION: Sep 23, 2016 at 21:00 DATE OF DISCHARGE: Oct 05, 2016 at 07:00 DISCHARGE DIAGNOSES: substance induced mood disorder -anxiety r/o ANNY Sedative, hypnotic and opiate addiction-chronic Cannabis abuse Chronic pain nicotine dependent. REASON FOR ADMISSION: presented to ED saying TLS told her to come and say she was thinking of harming herself. CONSULTANTS INVOLVED: na TREATMENT AND PROGRESS ON THE UNIT : toxicology positive for cannabis, benzo's, opiates, amphetamines. pt was detoxing for about 6 days and hardly left her bed. Once detoxed she stated attending groups and was very visible on milieu. She complained of anxiety and was put on low dose risperidone 0.25 mg tid. She said it was not helping so it was increased to 0.5 mg bid. She also had Vistaril 25 mg q 6 hours available for her. Pt attended to adls. She was not a behavior challenge on the unit. She was often observed on the phone. She attended treatment planning and participate in discharge planning. She has a sanction by [facility] and cannot get housing from them until she completes a treatment program. Referrals were sent to several agencies to see who would accept her. HOSPITAL COURSE: Pt was accepted at [facility] facility. She requested permission for her daughter to transport her which was allowed. The patient appeared brighter in affect after 8 days on the unit. She was clear headed and seemed eager to get her treatment underway. She was not med seeking. She asked to restart Effexor which was instituted for her. Medication education provided about quickly stopping the drug. She had been through that before so was aware and explained how awful that was for her, but the medication was effective in reducing her anxiety. pt met with her Case Mgt from [facility] before discharge. She was to transport pt to [facility] once discharged from Rehab to help with housing options for pt. Pt complained of feeling paranoid the last 3-4 days she was here. Her risperidone was reduced but this did not help. She continued to think that others were talking about her. She says "I always get paranoid. That's the way I am". DISCHARGE ASSESSMENT: She left at 7:30 a.m. with daughter for rehab. the rehab called at 11:30 a.m. to report she never arrived. She was last known to be at her mothers but had just left there when CDP called. TLS will be informed. MENTAL STATUS EXAMINATION ON DISCHARGE: Patient is a 51-year old female, who is petite, light haired, good eye contact, wearing street clothes. Speech is spontaneous Language skills are good. Thought processes including: goal directed. Thought content: appropriate. Abstract reasoning, and computation: good. Description of associations: logical. Description of abnormal or psychotic thoughts: denies SI, denies psychotic symptoms. Judgment: poor Insight: poor Orientation to well oriented in all spheres. Recent and remote memory: good. Attention span and concentration:good. Fund of knowledge: full Mood: anxious Affect: anxious Medical Status:EK09/23/16 SINUS RHYTHM POSSIBLE LEFT ATRIAL ENLARGEMENT POSSIBLE RIGHT VENTRICULAR CONDUCTION DELAY DECREASED RATE 01/05/16 A&P: 51yoF [facility] for unspecified depressive disorder 1. Psych. Plan per Psychiatry. EKG on file. 2. Nicotine dependence. Patch available. 3. Borderline EKG. No cardiac signs or symptoms appreciated on exam, follow with PCP. 4. Follow up with PCP on discharge. 5. Substance use. Per psychiatry. 6. Elevated CK. Recheck. 7. Anemia. Check iron studies, B12, folate. 8. IVDU. Patient agrees to HIV and hepatitis screening. 9. Osteoarthritis. Continue Tylenol 650 mg every 6 hours as needed. Consider pain management consultation if needed. Patient states she has not had any recent prescriptions for tramadol. ISTOP reference # [id number] yielded no results. MEDICATIONS ON DISCHARGE: none as patient was going to rehab. PLAN/FOLLOWUP ARRANGEMENTS: complete treatment at [facility], re- engage with TLS upon return. The amount of time spent in the coordination of care for this patient was approximately 30 minutes. Vital Signs/I&Os Vital Signs Date Time Temp Pulse Resp B/P (MAP) Pulse Ox O2 Delivery O2 Flow Rate FiO2 10/05/16 06:27 133/66 10/04/16 18:00 98.5 99 16 10/04/16 06:30 Room Air Medications Miscellaneous Medications [Patient Comment] , (Reported) DOSE NOT HAVE AN ACTIVE RX FOR THESE TWO OR ANY DRUGS. LAST TIME SHE FILLED THESE RX WAS 08/12. Allergies Coded Allergies: No Known Allergies (Verified , 08/20/02) Fabienne Shah Oct 05, 2016 14:06
== END 2016-10-05 07:00 | disposition home or self-care (01) | DRG 773 ==
LOC: M ED 15:26 → M ED INP 21:00 → M PSY 23:48
PROVIDERS: ADMIT Psychiatry & Neurology Psychiatry; ATTEND Psychiatry & Neurology Psychiatry
DX: F19.94 Other psychoactive substance use, unspecified with psychoactive substance-induced mood disorder (principal); F13.20 Sedative, hypnotic or anxiolytic dependence, uncomplicated; F11.20 Opioid dependence, uncomplicated; F41.9 Anxiety disorder, unspecified; F17.200 Nicotine dependence, unspecified, uncomplicated; G89.29 Other chronic pain; F12.10 Cannabis abuse, uncomplicated; D64.9 Anemia, unspecified; M19.90 Unspecified osteoarthritis, unspecified site; Z79.899 Other long term (current) drug therapy

== ENCOUNTER 2020-10-05 16:21 | Emergency (ER) | payer MEDICAID, OTHER ==
[~2020-10-05] VITALS: Ht 160 cm; Wt 63.3 kg
[~2020-10-05 16:21] MED LIST changes: +ALPR0.5T3 PO; +PATIENT COMMENT; +TRAM50TA2 PO
[2020-10-05] MEDS ORDERED: PHENAZOPYRIDINE 100 MG TAB PO ONE (18:10)
[2020-10-05] MEDS ORDERED: CIPROFLOXACIN 500MG TABLET PO ONE (18:10)
[2020-10-05] MEDS ORDERED: PYRI1TAB5 PO (18:18)
[2020-10-05] MEDS ORDERED: CIPR-249 PO (18:18)
[2020-10-05 18:25] VITALS: BP 141/86
== END 2020-10-05 18:27 | disposition home or self-care (01) ==
LOC: M ED 16:21
DX: N10 Acute pyelonephritis (principal); N39.0 Urinary tract infection, site not specified; R10.9 Unspecified abdominal pain; F17.200 Nicotine dependence, unspecified, uncomplicated

== ENCOUNTER → 2024-10-12 | Outpatient (CLI) | payer MEDICAID ==
[~2024-10-12] MED LIST changes: +CIPR-249 PO; +CLON-952 PO; -KLON2TAB PO; -PAXI30TA11 PO; +PAXI30TA12 PO; +PYRI1TAB5 PO
[2024-10-12 15:52] LABS: BASO # 0.0 10^3/uL (0.0-0.2); BASO % 0.6 % (0.0-1.0); EOS # 0.2 10^3/uL (0.0-0.5); EOS % 2.4 % (0.0-3.0); LYMPH # 3.4 10^3/uL (1.5-5.0); LYMPH % 46.9 % (24.0-44.0); MONO # 0.3 10^3/uL (0.0-0.8); MONO % 4.5 % (2.0-8.0); NEUTROPHILS # 3.3 10^3/uL (1.5-8.5); NEUTROPHILS % 45.5 % (36.0-66.0); PLATELET COUNT, AUTOMATED 276 10^3/uL (150-450)
[2024-10-12 16:19] LABS: ALT/SGPT 13 U/L (7.0-40); AST/SGOT 23 U/L (<34); CALCIUM LEVEL 9.3 MG/DL (8.5-10.1); CARBON DIOXIDE LEVEL 30 MMOL/L (20-31); CHLORIDE LEVEL 105 MMOL/L (98-107); CREATININE FOR GFR 0.74 MG/DL (0.55-1.30); GLOMERULAR FILTRATION RATE > 90.0 (>51); POTASSIUM SERUM 4.0 MMOL/L (3.5-5.1); SODIUM LEVEL 143 MMOL/L (136-145)
[2024-10-12 16:22] LABS: TOTAL 25(OH) VITAMIN D 34.6 NG/ML (20.0-100.0)
== END ==
LOC: M EKG 15:14
PROVIDERS: ATTEND Nurse Practitioner Psychiatric/Mental Health
DX: F11.21 Opioid dependence, in remission (principal)